=== PATIENT | male | born 1985 | race Two or more races ===

== ENCOUNTER 2017-10-06 11:30 | Emergency (ER) | payer MEDICAID, OTHER ==
[~2017-10-06] VITALS: Ht 182.9 cm; Wt 95.3 kg
[2017-10-06 12:01] VITALS: BP 152/72
[2017-10-06] MEDS ORDERED: cefTRIAXone SOD 1,000 MG VL IM ONE (13:15)
[2017-10-06] MEDS ORDERED: IBUPROFEN 800 MG TAB PO ONE (13:15)
== END 2017-10-06 14:44 | disposition home or self-care (01) ==
LOC: ER 11:30
DX: L02.511 Cutaneous abscess of right hand (principal)
CPT/HCPCS: 10160; 73130; 96372; 99284; J0696